=== PATIENT | male | born 1990 | race Caucasian/White ===

== ENCOUNTER 2016-12-27 14:31 | Emergency (ER) | payer SELFPAY ==
[2010-02-17 11:14] VITALS: BMI 23.8
== END 2016-12-27 16:45 | disposition home or self-care (01) ==
LOC: D.ER 14:31
DX: S62.92XA Unspecified fracture of left hand, initial encounter for closed fracture (principal); W22.8XXA Striking against or struck by other objects, initial encounter; Y93.89 Activity, other specified; Y92.029 Unspecified place in mobile home as the place of occurrence of the external cause; F17.200 Nicotine dependence, unspecified, uncomplicated

== ENCOUNTER 2017-01-08 15:26 | Emergency (ER) | payer SELFPAY ==
[2010-02-17 11:14] VITALS: BMI 23.8
== END 2017-01-08 20:29 | disposition home or self-care (01) ==
LOC: D.ER 15:26
DX: S62.307G Unspecified fracture of fifth metacarpal bone, left hand, subsequent encounter for fracture with delayed healing (principal); W22.8XXD Striking against or struck by other objects, subsequent encounter; F17.200 Nicotine dependence, unspecified, uncomplicated

== ENCOUNTER 2017-02-18 10:18 | Emergency (ER) | payer SELFPAY ==
[2010-02-17 11:14] VITALS: BMI 23.8
== END 2017-02-18 12:30 | disposition home or self-care (01) ==
LOC: D.ER 10:18
DX: S39.012A Strain of muscle, fascia and tendon of lower back, initial encounter (principal); X50.0XXA Overexertion from strenuous movement or load, initial encounter; X50.9XXA Other and unspecified overexertion or strenuous movements or postures, initial encounter; Y93.89 Activity, other specified; Y92.89 Other specified places as the place of occurrence of the external cause; L03.011 Cellulitis of right finger; F17.200 Nicotine dependence, unspecified, uncomplicated

== ENCOUNTER 2017-03-30 08:51 | Emergency (ER) | payer MEDICAID ==
[2010-02-17 11:14] VITALS: BMI 23.8
[2017-03-30 09:45] LABS: BASOPHILS 0.4 % (0-2); EOSINOPHILS 3.4 % (0-7); HEMATOCRIT 44.2 % (42.0-54.0); HEMOGLOBIN 14.7 g/dL (13.5-17.5); IMMATURE GRANULOCYTES 0.1 % (0-5); LYMPHOCYTES 24.2 % (15-50); MCH 29.3 pg (26.0-34.0); MCHC 33.3 g/dL (31.0-37.0); MCV 88.2 fL (80.0-100.0); MEAN PLATELET VOLUME 10.5 fL (7.4-10.4); MONOCYTES 8.4 % (2-11); NEUTROPHILS 63.5 % (40-80); PLATELET COUNT 204 10x3/uL (130-400); RBC 5.01 10x6/uL (4.20-6.10); RDW 13.9 % (11.5-14.5); WBC 7.4 10x3/uL (4.8-10.8)
[2017-03-30 10:17] LABS: ALBUMIN 3.8 g/dL (3.4-5.0); ALKALINE PHOSPHATASE 117 U/L (46-116); ALT (SGPT) 75 U/L (10-68); BILIRUBIN - TOTAL 0.28 mg/dL (0.2-1.3); CALC OSMOLALITY 276 mosm/kg (275-300); CALCIUM 9.1 mg/dL (8.5-10.1); CARBON DIOXIDE 29.8 mmol/L (21.0-32.0); CHLORIDE - SERUM 104 mmol/L (98-107); CREATININE - SERUM 1.1 mg/dL (0.6-1.3); GLUCOSE 102 mg/dL (74-106); PHENYTOIN (DILANTIN) 1.3 ug/mL (10.0-20.0); SODIUM 140 mmol/L (136-145); UREA NITROGEN 8 mg/dL (7-18); eGFR NON AFRICAN AMERICAN 85 mL/min (90-120)
== END 2017-03-30 11:33 | disposition home or self-care (01) ==
LOC: D.ER 08:51
PROVIDERS: Emergency Medicine
DX: G40.89 Other seizures (principal); F17.200 Nicotine dependence, unspecified, uncomplicated

== ENCOUNTER 2017-04-16 05:26 | Emergency (ER) | payer OTHER ==
[2010-02-17 11:14] VITALS: BMI 23.8
== END 2017-04-16 07:10 | disposition home or self-care (01) ==
LOC: D.ER 05:26
DX: T68.XXXA Hypothermia, initial encounter (principal); X31.XXXA Exposure to excessive natural cold, initial encounter; F17.200 Nicotine dependence, unspecified, uncomplicated

== ENCOUNTER 2017-04-16 22:06 | Emergency (ER) | payer OTHER ==
[2010-02-17 11:14] VITALS: BMI 23.8
[2017-04-17 01:17] LABS: HEMATOCRIT 42.6 % (42.0-54.0); HEMOGLOBIN 14.5 g/dL (13.5-17.5); MCV 85.2 fL (80.0-100.0); MEAN PLATELET VOLUME 11.1 fL (7.4-10.4); PLATELET COUNT 256 10x3/uL (130-400); RDW 13.4 % (11.5-14.5); WBC 23.6 10x3/uL (4.8-10.8)
[2017-04-17 01:36] LABS: ALBUMIN 4.2 g/dL (3.4-5.0); ALKALINE PHOSPHATASE 117 U/L (46-116); ALT (SGPT) 85 U/L (10-68); CALC OSMOLALITY 280 mosm/kg (275-300); CALCIUM 9.1 mg/dL (8.5-10.1); CARBON DIOXIDE 26.6 mmol/L (21.0-32.0); CHLORIDE - SERUM 101 mmol/L (98-107); CREATININE - SERUM 1.1 mg/dL (0.6-1.3); GLUCOSE 102 mg/dL (74-106); POTASSIUM - SERUM 3.3 mmol/L (3.5-5.1); PROTEIN - SERUM 7.5 g/dL (6.4-8.2); SODIUM 139 mmol/L (136-145); UREA NITROGEN 21 mg/dL (7-18); eGFR NON AFRICAN AMERICAN 85 mL/min (90-120)
[2017-04-17 01:45] LABS: LYMPHOCYTES 13 % (15-50); MONOCYTES 3 % (2-11); NEUTROPHILS 82 % (40-80); PLATELET ESTIMATE NORMAL
== END 2017-04-17 01:19 | disposition home or self-care (01) ==
LOC: D.ER 22:06
PROVIDERS: Family Medicine
DX: J20.9 Acute bronchitis, unspecified (principal); F17.200 Nicotine dependence, unspecified, uncomplicated; G40.909 Epilepsy, unspecified, not intractable, without status epilepticus

== ENCOUNTER 2018-11-02 02:28 | Inpatient (IN) | payer MEDICAID ==
[~2018-11-02] VITALS: Ht 182.9 cm; Wt 81.4 kg
[2018-11-02 03:32] LABS: BASOPHILS 0.2 % (0-2); EOSINOPHILS 0.3 % (0-7); HEMATOCRIT 39.6 % (42.0-54.0); HEMOGLOBIN 13.9 g/dL (13.5-17.5); IMMATURE GRANULOCYTES 0.2 % (0-5); LYMPHOCYTES 14.5 % (15-50); MCH 30.2 pg (26.0-34.0); MCHC 35.1 g/dL (31.0-37.0); MCV 86.1 fL (80.0-100.0); MEAN PLATELET VOLUME 9.6 fL (7.4-10.4); MONOCYTES 11.8 % (2-11); RDW 13.5 % (11.5-14.5); WBC 10.7 10x3/uL (4.8-10.8)
[2018-11-02 03:35] LABS: PLATELET COUNT 200 10x3/uL (130-400)
[2018-11-02 03:48] LABS: ALBUMIN 4.4 g/dL (3.4-5.0); ALKALINE PHOSPHATASE 116 U/L (46-116); ALT (SGPT) 128 U/L (10-68); BILIRUBIN - TOTAL 1.71 mg/dL (0.2-1.3); CALC OSMOLALITY 273 mosm/kg (275-300); CALCIUM 8.6 mg/dL (8.5-10.1); CARBON DIOXIDE 25.5 mmol/L (21.0-32.0); CHLORIDE - SERUM 96 mmol/L (98-107); CREATININE - SERUM 1.3 mg/dL (0.6-1.3); GLUCOSE 104 mg/dL (74-106); POTASSIUM - SERUM 3.4 mmol/L (3.5-5.1); PROTEIN - SERUM 8.5 g/dL (6.4-8.2); SODIUM 134 mmol/L (136-145); UREA NITROGEN 28 mg/dL (7-18); eGFR NON AFRICAN AMERICAN 69 mL/min (90-120)
[2018-11-02 03:50] LABS: APPEARANCE CLEAR (CLEAR); BILIRUBIN NEGATIVE (NEGATIVE); COLOR COLORLESS (YELLOW); GLUCOSE NEGATIVE (NEGATIVE); KETONE NEGATIVE (NEGATIVE); NITRITE NEGATIVE (NEGATIVE); PROTEIN NEGATIVE (NEGATIVE); UROBILINOGEN NORMAL (NORMAL)
[2018-11-02 04:06] LABS: CREATINE KINASE 415 UL (21-232)
[2018-11-02 04:17] LABS: CKMB 6.1 U/L (0.0-3.6)
--- NOTE | 2018-11-02 06:32 | NUR ---
RECIEVED TO ROOM 2127 FROM ER VIA W/C. PT LETHARGIC AND WONT ANSWER QUESTIONS WHEN SPOKEN TO. VITALS STABLE. IV TO LEFT AC, SL. IV SITE CLEAN AND DRY. PT DENIES NEEDS, BED LOW, CL IN REACH.
[2018-11-02 07:13] VITALS: BP 113/72
--- NOTE | 2018-11-02 07:29 | NUR ---
PT RESTING, EYES CLOSED. APPEARS RESTLESS. WILL CONTINUE TO MONITOR.
[2018-11-02] MEDS ORDERED: DILANTIN100 MG PO (09:20)
[2018-11-02] MEDS ORDERED: DEPAKOTE500 MG PO (09:20)
[2018-11-02] MEDS ORDERED: HALDOL5 MG (09:22)
--- NOTE | 2018-11-02 09:34 | NUR ---
PT IS NOW ALERT AND ORIENTED. APPEARS CALM. STATED HE WAS ALLERGIC TO VANCOMYCIN AND SULFA DRUGS BEFORE VANCOMYCIN WAS ADMINISTERED.
--- NOTE | 2018-11-02 10:31 | NUR ---
I have reviewed this patient and I concur with the Shift Assessment completed by the Licensed Practical Nurse today this shift.
--- NOTE | 2018-11-02 10:51 | NUR ---
PT STATES HE WANTS TO GO HOME. WILL SPEAK WITH ADAMA MARC ABOUT D/C.
--- NOTE | 2018-11-02 10:58 | NUR ---
SPOKE WITH ADAMA, STATED SHE WOULD WORK ON D/C. UPON ENTERING THE ROOM TO DISCUSS D/C PLANS PT STATED HE ALREADY TOOK OUT HIS IV AND PUT GAUZE OVER SITE. STATED HE WOULD WAIT FOR D/C PAPERWORK BEFORE HE LEFT.
[2018-11-02 12:57] VITALS: Ht 182.9 cm; Wt 81.4 kg
--- NOTE | 2018-11-02 14:00 | NUR ---
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 HAS NOT BEEN BACK SINCE. JORY GALAN WILL BE NOTIFIED.
== END 2018-11-02 15:50 | disposition left against medical advice (07) | DRG 603 ==
LOC: D.ER 02:28 → D.M2 05:44
PROVIDERS: Family Medicine; ADMIT Internal Medicine Nephrology; ATTEND Internal Medicine Nephrology
DX: L03.115 Cellulitis of right lower limb (principal); E87.1 Hypo-osmolality and hyponatremia; N17.9 Acute kidney failure, unspecified; F17.213 Nicotine dependence, cigarettes, with withdrawal; E87.6 Hypokalemia; F15.90 Other stimulant use, unspecified, uncomplicated; G40.909 Epilepsy, unspecified, not intractable, without status epilepticus; F20.9 Schizophrenia, unspecified